=== PATIENT | female | born 1965 | race Caucasian/White ===

== ENCOUNTER 2020-03-27 00:47 | Inpatient (IN) ==
[2020-03-27] MEDS ORDERED: 0.9 % Sodium Chloride 1,000 ML IVC ONE (01:11)
[2020-03-27] MEDS ORDERED: Isovue-370 500 ML BOTTLE IVP ONE (01:11)
[2020-03-27] MEDS ORDERED: methylPREDNISolone 125 MG/2 ML VIAL IVP ONE (01:11)
[2020-03-27 01:43] LABS: VBG HCO3 23 mEq/L (21-27); VBG PCO2 40 mmHg (41-51); VBG PH 7.37 pH Units (7.32-7.42); VBG PO2 67 mmHg (25-50)
[2020-03-27 01:49] LABS: Basophils # 0.1 K/mcL (0.0-0.2); Basophils % 1.4 %; Eosinophils # 0.1 K/mcL (0.0-0.6); Eosinophils % 0.8 %; Immature Granulocytes % 0.2 % (0-4); Lymphocytes # 1.4 K/mcL (0.6-4.6); Mean Corpuscular HGB Conc 33.3 g/dL (31.6-35.5); Mean Corpuscular Hemoglobin 33.2 pg (28.0-33.3); Mean Corpuscular Volume 99.7 fL (83.0-100.0); Monocytes # 0.5 K/mcL (0.0-1.3); Monocytes % 5.1 %; Neutrophils # 6.7 K/mcL (1.6-8.9); Platelet Count 257 K/mcL (140-400); Red Blood Count 3.91 M/mcL (3.82-4.97); Red Cell Distribution Width 12.8 % (11.5-14.5); Segmented Neutrophils % 76.5 %; White Blood Count 8.8 K/mcL (4.3-11.1)
[2020-03-27 02:01] LABS: BUN/Creatinine Ratio 24 (6-26); Blood Urea Nitrogen 23 mg/dL (6-20); Calcium 9.3 mg/dL (8.6-10.3); Carbon Dioxide 20 mEq/L (23-29); Chloride 108 mEq/L (98-107); Glucose 117 mg/dL (70-105); Osmolality,Calculated 295 (280-300); Sodium 140 mEq/L (136-145); eGFR For African Americans > 60 (> 60); eGFR For Non-African Americans > 60 (> 60)
[2020-03-27 02:09] LABS: Troponin I 0.07 ng/mL (< 0.04)
[2020-03-27 02:34] LABS: Adenovirus Not Detected (Not Detect); Coronavirus 229E Not Detected (Not Detect); Coronavirus HKU1 Not Detected (Not Detect); Coronavirus NL63 Not Detected (Not Detect); Coronavirus OC43 Not Detected (Not Detect); Human Metapneumovirus Not Detected (Not Detect); Human Rhinovirus/Enterovirus Not Detected (Not Detect); Influenza A Subtype 2009 H1 Not Detected (Not Detect); Influenza B Not Detected (Not Detect); Parainfluenza Virus 1 Not Detected (Not Detect); Parainfluenza Virus 2 Not Detected (Not Detect); Parainfluenza Virus 3 Not Detected (Not Detect); Parainfluenza Virus 4 Not Detected (Not Detect)
[2020-03-27 02:35] LABS: Bordetella Pertussis Not Detected (Not Detect); Chlamydophila pneumoniae Not Detected (Not Detect); Mycoplasma pneumoniae Not Detected (Not Detect); Respiratory Syncytial Virus Not Detected (Not Detect)
[2020-03-27] MEDS ORDERED: Nitroglycerin 0.4 MG TAB.SUBL SL SCH (02:45)
[2020-03-27] MEDS ORDERED: Aspirin 81 MG TAB.CHEW PO ONE (02:50)
[2020-03-27] MEDS ORDERED: Furosemide 40 MG in 0.9 % Sodium Chloride 50 ML IV ONE (03:07)
[2020-03-27] MEDS ORDERED: *HR* Heparin 5,000 UNIT/ML VIAL IVP ONE (03:14)
[2020-03-27] MEDS ORDERED: *HR* Heparin 5,000 UNIT/ML VIAL IVP PRN ×2 (03:14)
[2020-03-27] MEDS ORDERED: Heparin 25,000UNIT/250ML 1/2NS 25,000 UNIT/250 ML IV.SOLN IVC SCH (03:15)
[2020-03-27] MEDS ORDERED: Furosemide 40 MG/4 ML VIAL IVP ONE (03:45)
[2020-03-27 04:05] LABS: Prothrombin Time 11.6 Seconds (9.4-12.1)
[2020-03-27 04:06] LABS: Heparin anti-factor XA UFH < 0.04 IU/mL (0.30-0.70)
[2020-03-27 04:47] LABS: Activated Partial Thrombo Time 38.3 Seconds (26.0-36.0)
[2020-03-27] MEDS ORDERED: Ondansetron 4 MG/2 ML VIAL IVP PRN (05:26)
[2020-03-27] MEDS ORDERED: Naloxone 0.4 MG/ML INJ IVP PRN (05:26)
[2020-03-27 05:56] LABS: Alanine Aminotransferase 30 Units/L (7-52); Albumin 4.3 g/dL (3.5-5.7); Albumin/Globulin Ratio 1.5 (1.1-2.2); Alkaline Phosphatase 64 Units/L (34-104); Aspartate Amino Transferase 31 Units/L (13-39); Bilirubin,Direct 0.1 mg/dL (0.0-0.2); Bilirubin,Indirect 0.2 mg/dL (0.0-1.0); Bilirubin,Total 0.3 mg/dL (0.3-1.0); Globulin 2.9 g/dL (2.4-3.5); Total Protein 7.2 g/dL (6.4-8.9)
[2020-03-27] MEDS: Furosemide 40 MG/4 ML VIAL IVP SCH (07:31)
[2020-03-27] MEDS ORDERED: Perflutren Lipid Microsphere 1.3 ML in 0.9 % Sodium Chloride 8.7 ML IVP PRN (07:50)
[2020-03-27] MEDS: Aspirin 81 MG TAB.CHEW PO SCH (08:44)
[2020-03-27] MEDS ORDERED: Aspirin 81 MG TAB.CHEW PO SCH (09:00)
[2020-03-27] MEDS ORDERED: Acetaminophen 325 MG TABLET PO PRN (13:24)
[2020-03-27] MEDS: lisinopriL 10 MG TABLET PO SCH (14:59)
[2020-03-27] MEDS: carvediloL 6.25 MG TABLET PO SCH (17:08)
[2020-03-27] MEDS: predniSONE 20 MG TABLET PO SCH (17:09)
[2020-03-28 04:32] LABS: Basophils % 0.2 %; Hematocrit 34.5 % (35.3-44.9); Hemoglobin 11.6 g/dL (11.5-15.4); Immature Granulocytes % 0.4 % (0-4); Lymphocytes # 0.8 K/mcL (0.6-4.6); Lymphocytes % 9.1 %; Mean Corpuscular HGB Conc 33.6 g/dL (31.6-35.5); Mean Corpuscular Hemoglobin 33.7 pg (28.0-33.3); Mean Corpuscular Volume 100.3 fL (83.0-100.0); Mean Platelet Volume 10.2 fL (9.4-12.4); Monocytes # 0.4 K/mcL (0.0-1.3); Neutrophils # 7.8 K/mcL (1.6-8.9); Platelet Count 231 K/mcL (140-400); Red Blood Count 3.44 M/mcL (3.82-4.97); Red Cell Distribution Width 12.8 % (11.5-14.5); Segmented Neutrophils % 86.3 %
[2020-03-28 04:54] LABS: Alanine Aminotransferase 25 Units/L (7-52); Albumin 3.9 g/dL (3.5-5.7); Albumin/Globulin Ratio 1.9 (1.1-2.2); Alkaline Phosphatase 53 Units/L (34-104); Aspartate Amino Transferase 34 Units/L (13-39); BUN/Creatinine Ratio 28 (6-26); Bilirubin,Total 0.4 mg/dL (0.3-1.0); Blood Urea Nitrogen 22 mg/dL (6-20); Calcium 8.8 mg/dL (8.6-10.3); Carbon Dioxide 23 mEq/L (23-29); Chloride 107 mEq/L (98-107); Globulin 2.1 g/dL (2.4-3.5); Glucose 136 mg/dL (70-105); Osmolality,Calculated 291 (280-300); Potassium 3.6 mEq/L (3.5-5.1); Sodium 138 mEq/L (136-145); eGFR For African Americans > 60 (> 60); eGFR For Non-African Americans > 60 (> 60)
[2020-03-28 04:56] LABS: Troponin I 1.51 ng/mL (< 0.04)
[2020-03-28] MEDS: carvediloL 6.25 MG TABLET PO SCH ×2 (07:32→16:53)
[2020-03-28] MEDS: lisinopriL 10 MG TABLET PO SCH (07:32)
[2020-03-28] MEDS: Aspirin 81 MG TAB.CHEW PO SCH (07:32)
[2020-03-28] MEDS: predniSONE 20 MG TABLET PO SCH (07:32)
[2020-03-28] MEDS: Furosemide 40 MG/4 ML VIAL IVP SCH (07:32)
[2020-03-28] MEDS ORDERED: Furosemide 20 MG TABLET PO PRN (09:41)
[2020-03-28] MEDS: Spironolactone 25 MG TABLET PO SCH (10:04)
[2020-03-28] MEDS ORDERED: 0.9 % Sodium Chloride 2,000 ML ONE (10:36)
[2020-03-28] MEDS ORDERED: *HR* Heparin 10,000 UNIT/10 ML VIAL ONE (10:36)
[2020-03-28] MEDS ORDERED: Heparin 1,000 UNITS/500 mL 500 ML ONE (10:36)
[2020-03-28] MEDS ORDERED: Nitroglycerin 1,000 MCG/10 ML VIAL IV ONE (10:36)
[2020-03-28] MEDS ORDERED: ISOVUE-370 200 ML INFUS..BTL ONE ×2 (10:36→11:23)
[2020-03-28] MEDS ORDERED: *HR* FentaNYL (PF) 100 MCG/2 ML VIAL ONE (10:55)
[2020-03-28] MEDS ORDERED: *HR* Midazolam HCl 2 MG/2 ML VIAL ONE (10:55)
[2020-03-28] MEDS ORDERED: Tirofiban 12.5 MG/250ML 12.5 MG/250 ML BAG ONE (11:10)
[2020-03-28] MEDS ORDERED: *HR* Ticagrelor 90 MG TABLET ONE (11:20)
[2020-03-28] MEDS ORDERED: Tirofiban 12.5 MG/250ML 12.5 MG/250 ML BAG IVC SCH (12:00)
[2020-03-28] MEDS ORDERED: *HR* Atropine Sulfate 1 MG/10 ML SYRINGE ONE (12:10)
[2020-03-28] MEDS: *HR* Heparin 5,000 UNIT/ML VIAL SQ SCH (16:53)
[2020-03-28] MEDS: *HR* Ticagrelor 90 MG TABLET PO SCH (19:55)
[2020-03-29] MEDS: *HR* Heparin 5,000 UNIT/ML VIAL SQ SCH (06:36)
[2020-03-29] MEDS: *HR* Ticagrelor 90 MG TABLET PO SCH (07:49)
[2020-03-29] MEDS: lisinopriL 10 MG TABLET PO SCH (07:49)
[2020-03-29] MEDS: carvediloL 6.25 MG TABLET PO SCH (07:49)
[2020-03-29] MEDS: Aspirin 81 MG TAB.CHEW PO SCH (07:49)
[2020-03-29] MEDS: Spironolactone 25 MG TABLET PO SCH (07:49)
[2020-03-29 10:52] LABS: Basophils # 0.1 K/mcL (0.0-0.2); Basophils % 0.7 %; Immature Granulocytes % 0.3 % (0-4); Lymphocytes # 1.8 K/mcL (0.6-4.6); Lymphocytes % 24.6 %; Mean Corpuscular HGB Conc 33.3 g/dL (31.6-35.5); Mean Platelet Volume 10.2 fL (9.4-12.4); Monocytes # 0.6 K/mcL (0.0-1.3); Monocytes % 8.3 %; Neutrophils # 4.7 K/mcL (1.6-8.9); Platelet Count 262 K/mcL (140-400); Red Blood Count 3.94 M/mcL (3.82-4.97); Red Cell Distribution Width 13.3 % (11.5-14.5); Segmented Neutrophils % 66.1 %; White Blood Count 7.2 K/mcL (4.3-11.1)
[2020-03-29 10:53] LABS: BUN/Creatinine Ratio 29 (6-26); Blood Urea Nitrogen 25 mg/dL (6-20); Calcium 9.1 mg/dL (8.6-10.3); Carbon Dioxide 25 mEq/L (23-29); Chloride 106 mEq/L (98-107); Glucose 84 mg/dL (70-105); Osmolality,Calculated 290 (280-300); Potassium 3.4 mEq/L (3.5-5.1); Sodium 138 mEq/L (136-145); eGFR For African Americans > 60 (> 60); eGFR For Non-African Americans > 60 (> 60)
[2020-03-29 11:13] VITALS: BP 122/83
[2020-03-29] MEDS ORDERED: carvediloL 25 MG TABLET PO SCH (17:00)
== END 2020-03-29 14:33 | disposition home or self-care (01) | DRG 174 ==
LOC: 2ANU 00:47 → EMEROOARM 00:47 → SUATTDRO 04:54 → 2NNU 04:59
PROVIDERS: ADMIT Student in an Organized Health Care Education/Training Program; ATTEND Family Medicine